=== PATIENT | male | born 1945 | race Two or more races ===

== ENCOUNTER 2024-05-07 17:42 | Outpatient (REF) | payer MEDICARE, OTHER, SELFPAY ==
[2024-05-07 20:07] LABS: Anion Gap 13.3; BUN Creatinine Ratio 12.1; Calcium 8.3 mg/dL (8.5-10.1); Carbon Dioxide 27.6 mmol/L (21.0-32.0); Chloride 100 mmol/L (98-107); Estimated GFR (African America 59 (>=60); Estimated GFR (Non-African Ame 49 (>=60); Glucose 117 mg/dL (74-106); Potassium 4.9 mmol/L (3.5-5.1); Sodium 136 mmol/L (136-145)
== END 2024-05-07 17:43 | disposition home or self-care (01) ==
LOC: LAB 17:42
PROVIDERS: PCP Family Medicine; Visit Provider Nurse Practitioner Adult Health
DX: E86.0 Dehydration (principal); E87.1 Hypo-osmolality and hyponatremia; R94.4 Abnormal results of kidney function studies; R79.9 Abnormal finding of blood chemistry, unspecified
CPT/HCPCS: 36415; 80048